=== PATIENT | male | born 1950 | race Native Hawaiian/Other Pacific Islander ===

== ENCOUNTER 2017-08-14 18:01 | Emergency (ER) | payer MEDICAID ==
[~2017-08-14] VITALS: Ht 170.2 cm; Wt 77.6 kg
[~2017-08-14 18:01] MED LIST: ASPI81TA31 PO; ATOR40TA PO; Acetaminophen PO; Blood Sugar Diagnostic VI; CARV25TA PO; DEXT50DI8 IV; HYDR-3326 PO; INSU100I19 SQ; INSU100V28 SQ; Lisinopril PO; MAGN400O6 PO; Nitroglycerin TP; Ondansetron Hcl/Pf IV; PANT40TA2 PO; Zolpidem Tartrate PO
--- NOTE | 2017-08-14 18:58 | NUR ---
Patient discharged to home in stable conditon. Written and verbal after care instructions given. Patient verbalizes understanding of instructions.
== END 2017-08-14 18:59 | disposition home or self-care (01) ==
LOC: ER 18:01
DX: E11.9 Type 2 diabetes mellitus without complications (principal); I10 Essential (primary) hypertension; Z76.0 Encounter for issue of repeat prescription; Z95.0 Presence of cardiac pacemaker; Z79.4 Long term (current) use of insulin; Z79.82 Long term (current) use of aspirin; Z79.899 Other long term (current) drug therapy
CPT/HCPCS: A4663